=== PATIENT | male | born 1960 | race Caucasian/White ===

== ENCOUNTER 2018-11-10 05:36 | Day surgery (SDC) | payer OTHER ==
[~2018-11-10] VITALS: Ht 170.2 cm; Wt 98.9 kg
[~2018-11-10 05:36] MED LIST: ALLERGY10 MG PO; CENTRUM SILVER1 EAC2 PO; INDERAL 20 MG T20 M1 PO; PROBIOTIC1 EAC1 PO
[2018-11-10 11:00] VITALS: BP 111/67
[2018-11-10] MEDS ORDERED: NORCO 5-325 TA1 EACH PO (13:52)
--- NOTE | 2018-11-10 15:29 | O ---
[facility] [place] [address] OPERATIVE REPORT Name: NAN RAY Room #: 150-6 [facility]..#: [id number] Admission: 11/10/18 ������������������ Attend Phys: Arben Hanson MD Discharge: ������������������ Date of : 60 Report #: [id number] THIS REPORT FOR: //name// CC: Yo Hanson DATE OF SERVICE: 11/10/[address] Arben Hanson and Dr. Yo Diana. PREOPERATIVE DIAGNOSIS: Incarcerated umbilical hernia. POSTOPERATIVE DIAGNOSIS: Incarcerated umbilical hernia. PROCEDURE: Repair of an incarcerated umbilical hernia. SURGEON: Arben Hanson MD ANESTHESIA: Local IV sedation. DESCRIPTION OF PROCEDURE: The patient was brought to the operating room, placed on the operative table in the supine position. Sequential compression devices were in place for DVT prophylaxis. There was no indication for preoperative antibiotics. The patient underwent IV sedation and the abdomen was then prepped and draped in a sterile fashion. Skin and subcutaneous tissue were then infiltrated around the umbilicus using 0.5% Marcaine and 1% Xylocaine in a 1:1 mixture. Infraumbilical skin incision was then performed using #15 scalpel blade. Hemostasis obtained using electrocautery. Dissection was carried down through subcutaneous tissue to the incarcerated hernia sac with some incarcerated omentum. This was carefully dissected free using the Metzenbaum scissors and the electrocautery. I was then able to reduce the omentum back into the abdomen. I placed a finger inside the defect and was able to feel around there were no other fascial defects within that area. I then was able to easily close the deep fascial defect with interrupted [id number] #1 Prolene sutures. The umbilicus was then tacked to the fascia with simple interrupted 2-0 chromic suture and the deep and superficial subcutaneous tissue was reapproximated using simple interrupted 2-0 chromic suture. The skin was then closed using running 4-0 subcuticular Vicryl stitch. The wound was then dressed with Dermabond, Telfa, 4 x 4 gauze, sponge and tape. The patient was then taken to the recovery room awake, alert and in good condition. Estimated blood loss [address] [address] OPERATIVE REPORT Name: NAN RAY Room #: 150-6 [facility]..#: [id number] Admission: 11/10/18 ������������������ Attend Phys: Arben Hanson MD Discharge: ������������������ Date of : 60 Report #: [id number] was approximately 10 mL and the patient tolerated the procedure well. All sponge, lap and instrument counts correct x 2. ��������������������������������������������� <ELECTRONICALLY SIGNED> ���������������������������������������� By: Arben Hanson MD ��������������������������������������������� 11/10/18 1529 [id number] Arben Hanson MD /nt
== END 2018-11-10 15:00 | disposition home or self-care (01) ==
LOC: OR 05:36 → TBA 05:36 → OR 09:56
DX: K42.0 Umbilical hernia with obstruction, without gangrene (principal); F41.9 Anxiety disorder, unspecified; F17.210 Nicotine dependence, cigarettes, uncomplicated; Z98.890 Other specified postprocedural states; Z79.899 Other long term (current) drug therapy; Z88.2 Allergy status to sulfonamides
CPT/HCPCS: 50010; 50101; 50386; 50417; 54118; 56524; 56525; 62110; 62850; 70005